=== PATIENT | female | born 1945 | race Caucasian/White ===

== ENCOUNTER → 2016-09-08 | Outpatient (CLI) | payer MEDICARE, MEDICAID ==
[~2016-09-08] MED LIST: NKHM PO; NORCO 325 MG-51 TAB PO
[2016-09-08 10:23] LABS: HEMATOCRIT 43.3 % (37.0-47.0); HEMOGLOBIN 14.4 g/dl (12.0-16.0); MEAN CELL VOLUME 86.9 fl (81.0-99.0); MEAN CORPUSCULAR HGB 28.9 pg (27.0-31.0); MEAN CORPUSCULAR HGB CONC 33.3 g/dl (33.0-37.0); MEAN PLATELET VOLUME 8.9 fl (9.6-12.3); RED BLOOD COUNT 4.98 10*6/uL (4.10-5.10); RED CELL DISTRI WIDTH 13.7 % (0-14.5); WHITE BLOOD COUNT 7.9 10*3/uL (4.8-10.8)
[2016-09-08 10:51] LABS: ALBUMIN 3.9 gm/dl (3.1-4.5); ALKALINE PHOSPHATASE 79 U/L (45-117); BILIRUBIN, TOTAL 0.4 mg/dl (0.2-1.0); BUN 29 mg/dl (7-24); CARBON DIOXIDE 27 mmol/L (21-32); CHLORIDE 103 mmol/L (98-107); CHOLESTEROL 268 mg/dL (<200); EST GLOM FILT AFRICAN AMERICAN > 60 ml/min; GLUCOSE 84 mg/dL (65-99); HDL CHOLESTEROL 113 mg/dl (40-60); LDL CHOLESTEROL 133 mg/dL (9-159); POTASSIUM 4.2 mmol/L (3.5-5.1); SGOT/AST 12 IU/L (3-35); SGPT/ALT 25 U/L (12-78); SODIUM 143 mmol/L (136-145); TRIGLYCERIDES 108 mg/dl (<150); VLDL CHOLESTEROL 22 mg/dL (6-40)
== END | disposition home or self-care (01) ==
LOC: LAB 10:01
PROVIDERS: Family Medicine
DX: E78.00 Pure hypercholesterolemia, unspecified (principal); E55.9 Vitamin D deficiency, unspecified; L65.9 Nonscarring hair loss, unspecified; R25.2 Cramp and spasm; M25.50 Pain in unspecified joint

== ENCOUNTER → 2017-01-31 | Outpatient (CLI) | payer MEDICARE, MEDICAID | END | disposition home or self-care (01) | LOC: LAB 07:22 | DX: E55.9 Vitamin D deficiency, unspecified (principal) ==

== ENCOUNTER → 2017-03-08 | Outpatient (CLI) | payer MEDICARE, MEDICAID | END | disposition home or self-care (01) | LOC: MAMMO 01:13 | DX: Z12.31 Encounter for screening mammogram for malignant neoplasm of breast (principal) ==

== ENCOUNTER → 2017-05-15 | Outpatient (CLI) | payer MEDICARE, MEDICAID | END | disposition home or self-care (01) | LOC: RAD 03:54 | DX: Z13.820 Encounter for screening for osteoporosis (principal); N95.9 Unspecified menopausal and perimenopausal disorder; Z90.710 Acquired absence of both cervix and uterus ==

== ENCOUNTER → 2017-12-08 | Outpatient (CLI) | payer MEDICARE, MEDICAID | END | disposition home or self-care (01) | LOC: CT 08:32 | DX: R10.9 Unspecified abdominal pain (principal); R11.0 Nausea; R19.7 Diarrhea, unspecified ==

== ENCOUNTER → 2017-12-20 | Day surgery (SDC) | payer MEDICARE, MEDICAID ==
[~2017-12-20] VITALS: Ht 160 cm; Wt 68.0 kg
--- NOTE | ~2017-12-20 | O ---
[place], [place] OPERATIVE NOTE NAME: SHERIE FOURNIER UNIT #: [id number] ROOM: DOCTOR: WENDY VELASQUEZDYLLAN BIRTHDATE: [birth year] DOS: 12/20/2017 IDENTIFICATION: This is a 72-year-old patient who has presented with a chief complaint of epigastric distress, dyspepsia, abdominal pain, urgency, change in bowel habits, 9 weeks of diarrhea, quite symptomatic in her GI presentation. PAST SURGICAL HISTORY: Uterine CA status post hysterectomy. PAST MEDICAL HISTORY: Essentially unremarkable. ALLERGIES: To no known medications. SOCIAL HISTORY: Nonsmoker. Social alcohol consumer. MEDICATIONS AT HOME: None at the present time. PROCEDURE #1: Today's procedure part of investigation is panendoscopy plus biopsies and colonoscopy. PREMEDICATION: Propofol. SCOPE: Olympus forward-viewing gastroscope Q10 video. REPORT: After putting the patient in left lateral position and application of lubricant to the scope, the scope was introduced, thereafter under direct visualization advanced through the length of esophagus without difficulty. Esophagus, cervical, thoracic distal within normal limits. A small hiatal hernia, 1.5 cm was noticed. Gastric pouch was entered. Mild gastritis seen. Antrum biopsied for H. pylori. As I entered the duodenal bulb second part, moderate duodenitis noticed, photographed, biopsied. Scope was gradually withdrawn back to the gastric pouch. GI reflexion of the scope reveals cardia to be benign. Air was suctioned out. The patient was extubated, tolerated the procedure well. IMPRESSION: A small hiatal hernia, mild gastritis, moderate duodenitis. PLAN AND DISCUSSION: We are going to consider ranitidine 150 mg b.i.d., if she cannot tolerate, then 150 mg at bedtime. Meanwhile, I am going to await biopsy results as well. I am going to organize a colonoscopy today. GASTROENDOSCOPIC REPORT IDENTIFICATION: This is a 72-year-old patient who has presented with a chief complaint of change in bowel habits, diarrhea, cramp, urgency of stool. PROCEDURE #2: Today's procedure part of investigation is colonoscopy. PREMEDICATION: Propofol. SCOPE: Olympus forward-viewing colonoscope 10L video. [place], [place] OPERATIVE NOTE NAME: SHERIE FOURNIER UNIT #: [id number] ROOM: DOCTOR: WENDY VELASQUEZ,DYLLAN BIRTHDATE: [birth year] REPORT: After putting the patient in left lateral position and application of lubricant to rectal pouch and digital examination, scope was introduced, thereafter under direct visualization advanced through the length of colon without difficulty. A sessile polypoid lesion very small at about hepatic flexure with piecemeal polypectomy removed, base of cecum explored, appendiceal orifice identified, photographic series obtained. Tortuosity and redundancy of colon appreciated. Severe angulation at hepatic flexure and splenic flexure was noticed. Random biopsies of the descending colon were obtained, ruling out collagenous colitis. Air was suctioned out. The patient was extubated, tolerated the procedure well. IMPRESSION: Sessile colonic polyp, status post piecemeal polypectomy, status post random biopsy of colon ruling out collagenous colitis. PLAN AND DISCUSSION: I believe that this patient may have some element of irritable bowel syndrome in addition to her other anatomical variations that she has, including redundancy of colon and tortuosity of colon. Course of dicyclomine 10 mg one at bedtime is going to be recommended and given a prescription for. The patient is to have high-fiber diet, follow up routinely with you in office, p.r.n. visit with us in [facility]. I have had a CT scan of the abdomen and pelvis done recently and no acute point of concern on CT scan in summary is noticed. Thank you very much indeed. DYLLAN NGUYEN MD CM:OPRECORD:OPERATIVE NOTE [id number] PJ NGUYEN MD 12/20/17 1207 interface
[2017-12-20 09:32] VITALS: BP 133/77
[2017-12-20 10:47] VITALS: BP 128/70
[2017-12-20 10:55] VITALS: BP 138/74
[2017-12-20 11:08] VITALS: BP 133/77
[2017-12-20 11:18] VITALS: BP 129/84
== END | disposition home or self-care (01) ==
LOC: SDC 12-15 12:30
DX: K52.9 Noninfective gastroenteritis and colitis, unspecified (principal); K56.2 Volvulus; Q43.8 Other specified congenital malformations of intestine; K29.50 Unspecified chronic gastritis without bleeding; K29.80 Duodenitis without bleeding; K44.9 Diaphragmatic hernia without obstruction or gangrene; G89.29 Other chronic pain; M06.9 Rheumatoid arthritis, unspecified; F41.9 Anxiety disorder, unspecified; Z85.42 Personal history of malignant neoplasm of other parts of uterus; Z90.710 Acquired absence of both cervix and uterus; Z98.890 Other specified postprocedural states; Z91.09 Other allergy status, other than to drugs and biological substances

== ENCOUNTER → 2018-02-06 | Outpatient (CLI) | payer MEDICARE, MEDICAID | END | disposition home or self-care (01) | LOC: LAB 10:45 | DX: R19.7 Diarrhea, unspecified (principal); Z85.42 Personal history of malignant neoplasm of other parts of uterus ==

== ENCOUNTER → 2020-01-30 | Outpatient (CLI) | payer MEDICARE, MEDICAID | END | disposition home or self-care (01) | LOC: MAMMO 11:00 | PROVIDERS: ATTEND Obstetrics & Gynecology | DX: Z12.31 Encounter for screening mammogram for malignant neoplasm of breast (principal) ==

== ENCOUNTER → 2020-11-12 | Outpatient (CLI) | payer OTHER, MEDICAID | END | disposition home or self-care (01) | LOC: US 13:17 | PROVIDERS: ATTEND Family Medicine | DX: R10.2 Pelvic and perineal pain (principal) ==

== ENCOUNTER → 2021-03-24 | Outpatient (CLI) | payer OTHER, MEDICAID | END | disposition home or self-care (01) | LOC: COVID19 15:49 | PROVIDERS: ATTEND Internal Medicine | DX: U07.1 COVID-19 (principal) ==

== ENCOUNTER → 2021-10-23 | Outpatient (CLI) | payer OTHER, MEDICAID ==
[2021-10-23 09:58] LABS: ALKALINE PHOSPHATASE 65 U/L (45-117); BUN 19 mg/dl (7-24); CHLORIDE 109 mmol/L (98-107); CREATININE 0.72 mg/dL (0.55-1.02); POTASSIUM 4.2 mmol/L (3.5-5.1); SGOT/AST 11 IU/L (3-35); SGPT/ALT 20 U/L (12-78); SODIUM 144 mmol/L (136-145); TOTAL PROTEIN 7.6 gm/dL (6.4-8.2)
== END | disposition home or self-care (01) ==
LOC: LAB 09:14
PROVIDERS: ATTEND Family Medicine
DX: G47.62 Sleep related leg cramps (principal)

== ENCOUNTER → 2021-11-05 | Outpatient (CLI) | payer OTHER, MEDICAID | END | disposition home or self-care (01) | LOC: ORTHO 00:26 | PROVIDERS: ATTEND Orthopaedic Surgery | DX: S63.092A Other subluxation of left wrist and hand, initial encounter (principal); M19.032 Primary osteoarthritis, left wrist; X58.XXXA Exposure to other specified factors, initial encounter; Y93.89 Activity, other specified; Y92.89 Other specified places as the place of occurrence of the external cause; Y99.8 Other external cause status ==

== ENCOUNTER → 2021-11-25 | Day surgery (SDC) | payer OTHER, MEDICAID ==
[~2021-11-25] VITALS: Ht 157.4 cm; Wt 69.4 kg
[2021-11-25 06:48] VITALS: BP 130/66
[2021-11-25 08:10] VITALS: BP 113/59
[2021-11-25 08:25] VITALS: BP 129/67
[2021-11-25 08:41] VITALS: BP 123/65
== END | disposition home or self-care (01) ==
LOC: SDC 11-15 08:45
PROVIDERS: ATTEND Orthopaedic Surgery
DX: M67.432 Ganglion, left wrist (principal); M19.032 Primary osteoarthritis, left wrist; M18.12 Unilateral primary osteoarthritis of first carpometacarpal joint, left hand; F41.9 Anxiety disorder, unspecified; F32.9 Major depressive disorder, single episode, unspecified; Z90.710 Acquired absence of both cervix and uterus; Z79.899 Other long term (current) drug therapy

== ENCOUNTER → 2022-01-12 | Outpatient (CLI) | payer OTHER, MEDICAID | END | disposition home or self-care (01) | LOC: MAMMO 13:53 | PROVIDERS: ATTEND Family Medicine | DX: Z12.31 Encounter for screening mammogram for malignant neoplasm of breast (principal) ==

== ENCOUNTER 2022-05-12 11:15 | Emergency (ER) | payer OTHER, MEDICAID ==
[~2022-05-12] VITALS: Ht 160 cm; Wt 72.6 kg
[2022-05-12] MEDS ORDERED: AMOX-CLAV 875-1 EACH PO (12:13)
== END 2022-05-12 12:56 | disposition home or self-care (01) ==
LOC: ED 11:15
DX: S61.432A Puncture wound without foreign body of left hand, initial encounter (principal); M19.90 Unspecified osteoarthritis, unspecified site; Z90.710 Acquired absence of both cervix and uterus; Z98.890 Other specified postprocedural states; W54.0XXA Bitten by dog, initial encounter; Y93.89 Activity, other specified; Y92.89 Other specified places as the place of occurrence of the external cause; Y99.8 Other external cause status

== ENCOUNTER → 2022-07-19 | Outpatient (CLI) | payer OTHER, MEDICAID ==
[~2022-07-19] MED LIST changes: +AMOX-CLAV 875-1 EACH PO
[2022-07-19 09:35] LABS: HEMATOCRIT 43.8 % (37.0-47.0); MEAN CELL VOLUME 88.1 fl (81.0-99.0); MEAN CORPUSCULAR HGB CONC 32.9 g/dl (33.0-37.0); MEAN PLATELET VOLUME 8.5 fl (9.6-12.3); RED BLOOD COUNT 4.97 10*6/uL (4.10-5.10); RED CELL DISTRI WIDTH 12.9 % (0-14.5); WHITE BLOOD COUNT 6.6 10*3/uL (4.8-10.8)
[2022-07-19 10:19] LABS: ALKALINE PHOSPHATASE 70 U/L (46-116); BUN 12 mg/dl (9-23); CHLORIDE 106 mmol/L (98-107); CHOLESTEROL 239 mg/dL (<200); LDL CHOLESTEROL 127 mg/dL (9-159); SGPT/ALT 16 U/L (10-49); TOTAL PROTEIN 7.4 gm/dL (6.0-8.0); TRIGLYCERIDES 92 mg/dl (<150)
== END | disposition home or self-care (01) ==
LOC: LAB 09:19
PROVIDERS: ATTEND Family Medicine
DX: Z13.6 Encounter for screening for cardiovascular disorders (principal); Z13.220 Encounter for screening for lipoid disorders; R31.9 Hematuria, unspecified

== ENCOUNTER 2024-03-27 13:56 | Emergency (ER) | payer OTHER, MEDICAID ==
[~2024-03-27] VITALS: Ht 157.4 cm; Wt 72.1 kg
[2024-03-27 14:33] LABS: BASO # 0.1 10*3/uL (0.0-0.1); BASO % 0.7 % (0.0-1.0); EOS # 0.2 10*3/uL (0.0-0.4); EOS % 2.4 % (1.0-4.0); HEMATOCRIT 42.8 % (37.0-47.0); MEAN CELL VOLUME 89.2 fl (81.0-99.0); MEAN CORPUSCULAR HGB 29.2 pg (27.0-31.0); MEAN CORPUSCULAR HGB CONC 32.7 g/dl (33.0-37.0); MEAN PLATELET VOLUME 8.5 fl (9.6-12.3); MONO # 0.5 10*3/uL (0.1-1.0); NEUT # 5.1 10*3/uL (2.3-7.9); PLATELET COUNT AUTOMATED 340 10*3/uL (130-400); RED CELL DISTRI WIDTH 12.6 % (0-14.5); WHITE BLOOD COUNT 8.8 10*3/uL (4.8-10.8)
[2024-03-27 14:59] LABS: BUN 20 mg/dl (9-23); CHLORIDE 103 mmol/L (98-107); POTASSIUM 4.4 mmol/L (3.4-5.1)
[2024-03-27] MEDS ORDERED: CEPHALEXIN500 M1 PO (15:06)
[2024-03-27] MEDS ORDERED: PREDNISONE50 MG PO (15:06)
== END 2024-03-27 15:25 | disposition home or self-care (01) ==
LOC: ED 13:56
PROVIDERS: Physician Assistant Medical
DX: L03.115 Cellulitis of right lower limb (principal); R21 Rash and other nonspecific skin eruption; Z90.711 Acquired absence of uterus with remaining cervical stump

== ENCOUNTER → 2024-08-05 | Outpatient (CLI) | payer OTHER, MEDICAID ==
[~2024-08-05] MED LIST changes: +CEPHALEXIN500 M1 PO; +PREDNISONE50 MG PO
== END | disposition home or self-care (01) ==
LOC: MAMMO 12:35
PROVIDERS: ATTEND Family Medicine
DX: Z12.31 Encounter for screening mammogram for malignant neoplasm of breast (principal); R92.323 Mammographic fibroglandular density, bilateral breasts